=== PATIENT | male | born 1995 | race Caucasian/White ===

== ENCOUNTER 2017-08-24 18:13 | Emergency (ER) | payer OTHER ==
[~2017-08-24] VITALS: Ht 182.9 cm; Wt 90.0 kg
[~2017-08-24 18:13] MED LIST: LEVS0.124 SL; VENTAER INH; ZOFR8TAB4 SL
[2017-08-24 18:14] VITALS: BP 142/71; PULSE 92; RESP 14; TEMP 98.6; O2SAT 98
--- NOTE | 2017-08-24 19:40 | PD ---
HPI Chief Complaint: Skin Problem Time Seen by Provider: 19:33 Travel History International Travel<30 days: No Contact w/Intl Traveler<30days: No Traveled to known affect area: No History of Present Illness HPI 22-year-old white male presents to emergency department with complains of a right foot laceration after stepping on a sparkler head irrigation box which was open. He states that he was running on a slip and slide when it occurred. He denies any numbness or tingling. No weakness. Pain is [id number]. He missed to drinking alcohol. He has not had a tetanus shot over 5 years. No other injury. PFSH Past Medical History Arthritis: Yes Asthma: Yes Diminished Hearing: No Immunizations Current: Yes Tetanus Vaccination: > 5 Years Past Surgical History Surgical History: No Previous Surgery Social History Alcohol Use: Yes (OCC) Tobacco Use: No Substance Use: No Allergies-Medications (Allergen,Severity, Reaction): Coded Allergies: No Known Allergies (Verified , 08/24/17) Reported Meds & Prescriptions Reported Meds & Active Scripts Active Keflex (Cephalexin) 500 Mg Cap 500 Mg PO Q6H 7 Days Reported Ventolin Hfa 18 GM Inh (Albuterol Sulfate) 90 Mcg/Act Aer 2 Puff INH Q4-6H PRN Review of Systems Except as stated in HPI: all other systems reviewed are Neg Physical Exam Narrative GENERAL: This is a well-nourished, well-developed patient, in no apparent distress. SKIN: No rashes, ecchymoses or lesions. Warm and dry. HEAD: Atraumatic. Normocephalic. EYES: PERRL, EOMI, no discharge or injection. No scleral icterus. EARS: Clear NOSE: Nasal turbinates appear normal. THROAT: Mucosa pink and moist. Airway patent. NECK: Trachea midline. supple, moves head freely. LUNGS: Clear to auscultation. CV: Regular in rhythm. ABDOMEN: Soft nontender. EXT: No clubbing cyanosis or edema. Examination of the right foot reveals a large gaping laceration between the big toe and second toe down into the great toe medially. This laceration measures approximately 6 cm. There is also a skin avulsion lateral to the laceration on the plantar surface just into the dermis. This is over the second and third metatarsal region of the distal forefoot plantar surface. Patient has intact gross sensation. No obvious tendon or bony injury. No pain in the heel, Achilles, ankle, knee or hip. The left lower extremity as well as upper extremities are unremarkable for acute bony tenderness or deformity. Data Data Last Documented VS Vital Signs Date Time Temp Pulse Resp B/P (MAP) Pulse Ox O2 Delivery O2 Flow Rate FiO2 08/24/17 18:14 98.6 92 14 142/71 (94) 98 Orders Orders Foot, Complete ([id number]) (08/24/17 19:36) Tetanus/Diphtheria Tox Adult (Tetanus/Di (08/24/17 19:45) Cefazolin Inj (Ancef Inj) (08/24/17 19:45) Lidocaine 1% Inj (50 Ml) (Xylocaine 1% I (08/24/17 19:45) Crutches (08/24/17 20:39) MDM Medical Decision Making Medical Screen Exam Complete: Yes Emergency Medical Condition: Yes Medical Record Reviewed: Yes Differential Diagnosis MDM: High Differential diagnoses: Fracture, sprain, strain, dislocation, contusion, neurovascular injury Narrative Course Patient's tetanus status updated. Patient given 1 g of Ancef IM Patient's laceration is closed with sutures. Patient's foot is wrapped with a bulky dressing and patient's given crutches. Patient's mother is present during the history, exam and wound closure. She has taken several pictures before and after suturing. Multiple other family members were present during the history and physical portion and were also asked to step out during the procedure. This is right foot laceration Diagnosis Primary Impression: Laceration of right foot Qualified Codes: S91.311A - Laceration without foreign body, right foot, initial encounter Patient Instructions: General Instructions Departure Forms: Tests/Procedures, Work Release Special Instructions: No work 5 days. Additional Instructions: Rest. Elevation. Daily wound care with soap, water, Neosporin. Tylenol or Advil for pain. Sutures out in 14 days. Recheck with your doctor in the next 2-3 days. Return to the ER if any problems. Med/Other Pt SpecificInfo: Prescription(s) given Scripts Cephalexin (Keflex) 500 Mg Cap 500 MG PO Q6H for Infection for 7 Days, #28 CAP 0 Refills Prov: Lorenza Tilley MD 9/30/17 Disposition: 01 DISCHARGE HOME Condition: Stable Brandon Paniagua Aug 24, 2017 19:40
[2017-08-24] MEDS ORDERED: TETANUS/DIPHTHERIA TOXOID ADULT 0.5 ML VIAL IM ONE (19:45)
[2017-08-24] MEDS ORDERED: LIDOCAINE HCL 1% 50 ML VIAL INFIL ONE (19:45)
[2017-08-24] MEDS ORDERED: VENTAER INH (20:03)
[2017-08-24] MEDS ORDERED: CEPH-460 PO (20:41)
--- NOTE | 2017-08-24 20:46 | RADRPT ---
EXAM DATE/TIME: 08/24/2017 20:05 [facility] COMPARISON: No previous studies available for comparison. INDICATIONS : Right foot laceration. Patient cut bottom of foot on a sprinkler head. MEDICAL HISTORY : None. SURGICAL HISTORY : None. ENCOUNTER: Initial ACUITY: 1 day PAIN SCORE: 10/10 LOCATION: Right foot. FINDINGS: Three view examination of the right foot demonstrates no soft tissue swelling, dislocation, or fractu re. The tarsal bones appear intact. There is an accessory ossicle adjacent to the plantar base of the 1st distal phalanx. The interphalangeal and metatarsophalangeal joints are intact. The calcaneus is intact. Bony mineralization is normal. No radiopaque foreign body seen. CONCLUSION: 1. No radiopaque foreign body seen. 2. Small corticated ossific density adjacent to the 1st digit distal phalanx at the interphalangeal j oint. This probably represents an accessory ossicle. Recommend correlation with clinical exam for p resence of point tenderness in this area. Jose Clement MD on August 24, 2017 at 20:43 Board Certified Radiologist. This report was verified electronically.
== END 2017-08-24 21:10 | disposition home or self-care (01) ==
LOC: NEPK 18:13
DX: S91.311A Laceration without foreign body, right foot, initial encounter (principal); M19.90 Unspecified osteoarthritis, unspecified site; J45.909 Unspecified asthma, uncomplicated; Z23 Encounter for immunization; W22.8XXA Striking against or struck by other objects, initial encounter
CPT/HCPCS: 12002; 73630; 90471; 90714; 96372; 99283; E0113; J0690